=== PATIENT | male | born 1940 | race Caucasian/White ===

== ENCOUNTER 2024-05-18 07:51 | Inpatient (IN) | payer OTHER ==
[~2024-05-18] VITALS: Ht 172.7 cm; Wt 70.7 kg
--- NOTE | 2024-05-18 08:20 | ED.PDOC ---
Musculoskeletal HPI Comments 83Y M presents to ED for chief complaint LLE pain and swelling [id number]. Pt denies trauma, injury, and recent travel. No other symptoms reported. Pt denies alcohol, tobacco, and illicit drug use. Pt states he does not have a medical hx. Chief Complaint: Lower Extremity Time Seen by MD: 08:00 Reviewed Notes: Nurses Notes, Medications, Allergies Allergies: Coded Allergies: No Known Drug Allergy (Verified Allergy, Unknown, 05/18/24) Information Source: Patient Mode of Arrival: Ambulatory Location: Left Extremity Location: Calf Timing: Weeks Severity: Mild Able to Move Extremity: Yes Bear Weight: Fully Pain: Mild Circumstances: Spontaneous Onset of Symptoms: Spontaneous Symptoms: Swelling, Pain DVT Risk Factors: NONE Associated signs and symptoms: Swelling, Other Past Medical History PAST MEDICAL HISTORY: Denies Surgical History: Denies all surgeries Family History Family History: Unknown Social History Smoker: Non-Smoker Alcohol: Denies ETOH Use Drugs: Denies Drug Use Lives In: Home Constitutional: denies: chills, diaphoresis, fatigue, fever, malaise, sweats, weakness, others EENTM: denies: blurred vision, double vision, ear bleeding, ear discharge, ear drainage, ear pain, ear ringing, eye pain, eye redness, hearing loss, mouth pain, mouth swelling, nasal discharge, nose bleeding, nose congestion, nose pain, photophobia, tearing, throat pain, throat swelling, voice changes, others Respiratory: denies: cough, hemoptysis, orthopnea, SOB at rest, shortness of breath, SOB with excertion, stridor, wheezing, others Cardiovascular: denies: chest pain, dizzy spells, diaphoresis, Dyspnea on exertion, edema, irregular heart beat, left arm pain, lightheadedness, palpitations, PND, syncope, others Gastrointestinal: denies: abdomen distended, abdominal pain, blood streaked bowels, constipated, diarrhea, dysphagia, difficulty swallowing, hematemesis, melena, nausea, poor appetite, poor fluid intake, rectal bleeding, rectal pain, vomiting, others Genitourinary: denies: burning, dysuria, flank pain, frequency, hematuria, incontinence, penile discharge, penile sore, pain, testicle pain, testicle swelling, urgency, others Neurological: denies: dizziness, fainting, headache, left sided numbness, left sided weakness, numbness, paresthesia, pre-existing deficit, right sided numbness, right sided weakness, seizure, speech problems, tingling, tremors, weakness, others Musculoskeletal: reports: others (left calf pain and swelling); denies: back pain, gout, joint pain, joint swelling, muscle pain, muscle stiffness, neck pain Integumetry: denies: bruises, change in color, change in hair/nails, dryness, laceration, lesions, lumps, rash, wounds, others Allergic/Immunocompromised: denies: Difficulty Healing, Frequent Infections, Hives, Itching, others Hematologic/Lymphatic: denies: anemia, blood clots, easy bleeding, easy bruising, swollen glands, others Endocrine: denies: excessive hunger, excessive sweating, excessive thirst, excessive urination, flushing, intolerance to cold, intolerance to heat, unexplained weight gain, unexplained weight loss, others Psychiatric: denies: anxiety, bipolar disorder, depression, hopeless, panic disorder, schizophrenia, sleepless, suicidal, others All Other Systems: Reviewed and Negative Physical Exam General Appearance: No Apparent Distress, Normal HEENT: Normal ENT Inspection, Pharynx Normal, TMs Normal Neck: Full Range of Motion, Non-Tender, Normal, Normal Inspection Respiratory: Chest Non-Tender, Lungs Clear, No Accessory Muscle Use, No Respiratory Distress, Normal Breath Sounds Cardiovascular: No Edema, No JVD, No Murmur, No Gallop, Normal Peripheral Pulses, Regular Rate/Rhythm Breast Exam: Deferred Gastrointestinal: No Organomegaly, Non Tender, No Pulsatile Mass, Normal Bowel Sounds, Soft Genitalia: Deferred Pelvic: Deferred Rectal: Deferred Extremities: Calf tenderness (left calf tenderness/swelling, greater girth in c omparison to rt calf, no redness, no bruising), Normal capillary refill, Normal inspection, Normal range of motion, No pedal edema Musculoskeletal : Apperance: Normal Neurologic: Alert, debt counselor II-XII nml as Tested, No Motor Deficits, Normal Affect, Normal Mood, No Sensory Deficits Cerebellar Function: Normal Reflexes: Normal Skin: Dry, Normal Color, Warm Lymphatic: No Adenopathy Was a procedure done? Was a procedure done?: No Differential Diagnosis EXT Differential Diagnosis: Cellulitis, CHF, Deep Vein Thrombosis, Compartment Syndrome, Fracture, Sprain, Dislocation, Laceration, Gout, DJD, Contusion, Strain, Rheumatoid, Arthritis, Bursitis, Other (dvt) X-Ray, Labs, Meds, VS Vital Signs Date Time Temp Pulse Resp B/P (MAP) Pulse Ox O2 Delivery O2 Flow Rate FiO2 05/18/24 12:42 67 19 156/66 (96) 96 05/18/24 09:55 97.8 71 17 160/67 (98) 96 97.8 05/18/24 08:00 98.5 84 16 156/61 (92) 96 Lab Test 05/18/24 11:12 Range/Units White Blood Count 8.8 4.4-10.8 10^3/uL Red Blood Count 5.16 4.5-5.90 10^6/uL Hemoglobin 15.6 13.5-17.5 g/dL Hematocrit 46.4 41.0-53.0 % Mean Corpuscular Volume 89.9 80.0-100.0 fL Mean Corpuscular Hemoglobin 30.3 28.0-32.0 pg Mean Corpuscular Hemoglobin Concent 33.7 32.0-36.0 g/dL Red Cell Distribution Width 14.0 11.8-14.3 % Platelet Count 252 140-450 10^3/uL Mean Platelet Volume 6.5 L 6.9-10.8 fL Neutrophils (%) (Auto) 67.4 37.0-80.0 % Lymphocytes (%) (Auto) 20.2 10.0-50.0 % Monocytes (%) (Auto) 11.4 0.0-12.0 % Eosinophils (%) (Auto) 0.6 0.0-7.0 % Basophils (%) (Auto) 0.4 0.0-2.0 % Neutrophils # (Auto) 5.9 1.6-8.6 10 ^3/uL Lymphocytes # (Auto) 1.8 0.4-5.4 10 ^3/uL Monocytes # (Auto) 1.0 0-1.3 10 ^3/uL Eosinophils # (Auto) 0.1 0-0.8 10 ^3/uL Basophils # (Auto) 0 0-0.2 10 ^3/uL Nucleated Red Blood Cells 0.1 % Sodium Level 139 136-145 mmol/L Potassium Level 4.9 3.5-5.1 mmol/L Chloride Level 105 98-107 mmol/L Carbon Dioxide Level 29 20-31 mmol/L Anion Gap 5 5-15 Blood Urea Nitrogen 11 9-23 mg/dL Creatinine 1.03 0.700-1.30 mg/dL Glomerular Filtration Rate Calc 73 >90 mL/min BUN/Creatinine Ratio 10.7 10.0-20.0 Serum Glucose 114 H 74-106 mg/dL Calcium Level 9.6 8.7-10.4 mg/dL Current Medications Medications (Trade) Dose Ordered Sig/Jenaro Route Start Time Stop Time Status Last Admin Enoxaparin Sodium (Lovenox) 70 mg ONCE ONCE SC 05/18/24 10:45 05/18/24 10:46 DC 05/18/24 10:53 [place] [address] Ph: [phone] DIAGNOSTIC IMAGING Diagnostic Imaging Report : [id number] Signed PATIENT: RAJAT MADDOX JACCT: [id number] UNIT: [id number] : 1940 LOC: ER ROOM / BED: / AGE / SEX: 83 / M ADM STATUS: REG ER SERVICE 1 ORDERING PHYSICIAN: GWENDOLYN OLIVAS MD PROCEDURE(s): LLDVT - LT Lower DVT REASON: dvt ORDER NUMBER(s): [id number], ACCESSION NUMBER(s): [id number] EXAM: US Duplex Left Lower Extremity Veins CLINICAL INDICATION: dvt TECHNIQUE: Real-time duplex ultrasound scan of the left lower extremity veins integrating B-mode two-dimensional vascular structure, Doppler spectral analysis, color flow Doppler imaging and compression. COMPARISON: None FINDINGS: DEEP VEINS: DVT in the left superficial femoral vein, popiteal vein and po sterior tibial vein. SUPERFICIAL VEINS: Unremarkable. No thrombus in the visualized great saphenous vein. SOFT TISSUES: No acute findings. No popliteal cyst. OTHER FINDINGS: . . IMPRESSION: DVT in the left superficial femoral vein, popiteal vein and posterior tibial vein. HS:Y ATED BY: YESENIA MONZON MD DICTATED DATE/TIME: 05/18/24 1029 SIGNED BY: YESENIA MONZON MD SIGNED DATE/TIME: 05/18/24 102 CC: Time of 1ST Reevaluation: 08:30 Reevaluation 1ST: Unchanged Time of 2ND Reevaluation: 10:39 Reevaluation 2ND: Unchanged Patient Education/Counseling: Diagnosis, Treatment, Prognosis, Need For Follow Up Family Education/Counseling: Diagnosis, Treatment, Prognosis, Need For Follow Up, No Family Present Additional Information I reviewed the following notes from patient's past medical encounters: None The following tests were ordered, and results were reviewed by me: Lt lower DVT u/s Additional Information was gathered from interviewing the following independent historians: None I reviewed and agreed with the following test results read by other providers: Lt lower DVT u/s I discussed treatment and results with medical personnel. i spoke to Dr Quijano, [place] [facility], who informs me that pt was seen at the clinic yesterday and had a high DDI and was told to come in for US yesterday. their last BMP was normal, but it was 2 years ago, so i will get another baseline set of labs before starting Lovenox and updat Dr Quijano regarding disposition Dr quijano has been updated and will transfer pt to a [facility] facility for further evaluation and treatment. pt is agreeable Departure 1 Departure Time of Disposition: 10:39 Impression: Primary Impression: DVT (deep venous thrombosis) Qualified Codes: I82.401 - Acute embolism and thrombosis of unspecified deep veins of right lower extremity Disposition: 02 SHORT TERM HOSPITAL Condition: Stable Discharged With: Self, Spouse Critical Care Note Critical Care Time?: No Stability Stability form required: No Heart Score Heart Score: Heart Score Response (Comments) Value History N/A 0 EKG N/A 0 Age N/A 0 Risk Factors N/A 0 Troponin N/A 0 Total 0 I personally scribed for GWENDOLYN OLIVAS MD ([facility]) on 05/18/24 at 08:20. Electronically submitted by Annemarie Devlin (Amind). I personally scribed for GWENDOLYN OLIVAS MD ([place]) on 05/18/24 at 10:33. Electronically submitted by Annemarie Devlin (Amind). GWENDOLYN OLIVAS MD May 18, 2024 08:20
--- NOTE | 2024-05-18 10:31 | DVH ---
EXAM: US Duplex Left Lower Extremity Veins CLINICAL INDICATION: dvt TECHNIQUE: Real-time duplex ultrasound scan of the left lower extremity veins integrating B-mode two -dimensional vascular structure, Doppler spectral analysis, color flow Doppler imaging and compressio n. COMPARISON: None FINDINGS: DEEP VEINS: DVT in the left superficial femoral vein, popiteal vein and posterior tibial vein. SUPERFICIAL VEINS: Unremarkable. No thrombus in the visualized great saphenous vein. SOFT TISSUES: No acute findings. No popliteal cyst. OTHER FINDINGS: . . IMPRESSION: DVT in the left superficial femoral vein, popiteal vein and posterior tibial vein. HS:Y
[2024-05-18] MEDS: ENOXAPARIN SOD 80 MG/0.8ML SYRINGE SC ONE (10:53)
[2024-05-18 11:21] LABS: Basophils # (auto) 0 10 ^3/uL (0-0.2); Basophils % (auto) 0.4 % (0.0-2.0); Eosinophils # (auto) 0.1 10 ^3/uL (0-0.8); Eosinophils % (auto) 0.6 % (0.0-7.0); Hematocrit 46.4 % (41.0-53.0); Hemoglobin 15.6 g/dL (13.5-17.5); Lymphocytes # (auto) 1.8 10 ^3/uL (0.4-5.4); Lymphocytes % (auto) 20.2 % (10.0-50.0); Mean Corpuscular Hemoglobin 30.3 pg (28.0-32.0); Mean Corpuscular Hgb Conc. 33.7 g/dL (32.0-36.0); Mean Corpuscular Volume 89.9 fL (80.0-100.0); Monocytes % (auto) 11.4 % (0.0-12.0); Neutrophils # (auto) 5.9 10 ^3/uL (1.6-8.6); Neutrophils % (auto) 67.4 % (37.0-80.0); Nucleated Red Blood Cells % 0.1 %; Platelet Count (auto) 252 10^3/uL (140-450); Red Blood Cells 5.16 10^6/uL (4.5-5.90); White Blood Cell 8.8 10^3/uL (4.4-10.8)
[2024-05-18 11:53] LABS: Chloride 105 mmol/L (98-107); Potassium 4.9 mmol/L (3.5-5.1); Sodium 139 mmol/L (136-145)
[2024-05-18 11:54] LABS: Anion Gap 5 (5-15); Carbon Dioxide 29 mmol/L (20-31)
[2024-05-18 11:55] LABS: Calcium 9.6 mg/dL (8.7-10.4)
[2024-05-18 11:59] LABS: BUN/Creatinine Ratio 10.7 (10.0-20.0); Blood Urea Nitrogen 11 mg/dL (9-23)
[2024-05-18 12:07] LABS: Glucose 114 mg/dL (74-106)
[2024-05-18 16:55] VITALS: PULSE 64; RESP 16; O2SAT 93
[2024-05-18] MEDS ORDERED: DOCUSATE SOD 100 MG CAP PO PRN (19:15)
[2024-05-18] MEDS ORDERED: ONDANSETRON HCL 4 MG/2 ML VIAL IV PRN (19:15)
[2024-05-18] MEDS ORDERED: ACETAMINOPHEN 325 MG TAB PO PRN (19:15)
[2024-05-18] MEDS ORDERED: HYDROcodone-ACET 5/325MG TAB PO PRN (19:15)
[2024-05-18 19:30] VITALS: PULSE 71; RESP 14; O2SAT 93
[2024-05-18] MEDS: SODIUM CHLORIDE 0.9% 1,000 ML IV SCH (19:41)
--- NOTE | 2024-05-18 19:48 | DVHHP2 ---
History of Present Illness Reason for Visit: DVT in the left superficial femoral vein History of Present Illness The patient is a 83-year-old male who denies past medical history presented to [facility] ED with complaint of left lower extremity pain and swelling for approximately 2 weeks duration. Patient was seen and evaluated in the ED, laboratory data shows WBC 8.8, platelets 252, sodium 139, potassium 4.9, BUN 11, creatinine 1.03, GFR 73, glucose 114. Extremity venous study revealing DVT in the left superficial femoral vein, popliteal vein, and posterior tibial vein. Patient was started on Lovenox 70 mg subQ, please see medication orders section in the computer. On my assessment, patient denied chest pain, no trauma, injury, recent travel, no headache, no dizziness, no diaphoresis, no shortness a breath, no nausea, no vomiting, no fever, no chills. Patient was admitted for further evaluation and medical management. Past Medical History Denies past medical history Past Surgical History Denies all surgeries Family History Reviewed, noncontributory to the management of this case. Past Social History The patient lives at home, denies smoking, alcohol or illicit drugs abuse. Review of Systems Constitutional: Yes: Weakness; No: Fever, Chills, Sweats, Malaise, Other Eyes: No: Pain, Vision change, Conjunctivae inflammation, Eyelid inflammation, Other, Redness ENT: No: Ear pain, Ear discharge, Nose pain, Nose discharge, Nose congestion, Mouth pain, Mouth swelling, Throat pain, Throat swelling, Other Respiratory: No: Cough, Dry, Shortness of breath, SOB with excertion, Wheezing, Hemoptysis, Pleuritic Pain, Sputum, Wheezing, Other Cardiovascular: No: Chest Pain, Palpitations, Orthopnea, Paroxysmal Noc. Dyspnea, Edema, Lt Headedness, Other Gastrointestinal: No: Nausea, Vomiting, Abdominal Pain, Diarrhea, Constipation, Melena, Hematochezia, Other Genitourinary: No Dysuria, No Frequency, No Incontinence, No Hematuria, No Retention, No Other Musculoskeletal: other (left calf pain and swelling); No: neck pain, shoulder pain, arm pain, back pain, hand pain, leg pain, foot pain Skin: No: Rash, Lesions, Jaundice, Bruising, Other Neurological: No: Weakness, Numbness, Incoordination, Change in speech, Confusion, Seizures, Other Allergies: Coded Allergies: No Known Drug Allergy (Verified Allergy, Unknown, 05/18/24) Medications Current Medications Medications Dose Ordered Sig/Jenaro Route Start Time Stop Time Status Last Admin Dose Admin Enoxaparin Sodium 70 mg Q12HR SC 05/18/24 22:00 Sodium Chloride 1,000 ml @ 60 mls/hr [id number] IV 05/18/24 19:15 05/18/24 19:41 60 MLS/HR Acetaminophen/ Hydrocodone Bitart 1 tab Q4HP PRN PO 05/18/24 19:15 Ondansetron HCl 4 mg Q4HP PRN IV 05/18/24 19:15 Docusate Sodium 100 mg BIDPRN PRN PO 05/18/24 19:15 Acetaminophen 650 mg Q6HP PRN PO 05/18/24 19:15 Exam Vital Signs Vital Signs Date Time Temp Pulse Resp B/P (MAP) Pulse Ox O2 Delivery O2 Flow Rate FiO2 05/18/24 19:27 99.6 71 14 140/63 (88) 93 99.6 05/18/24 16:55 Room Air* 0 21 General Appearance: Alert, Oriented X3, Cooperative, No acute distress HEENT: Atraumatic, PERRLA, EOMI, Mucous membr. moist/pink Respiratory: Clear to auscultation, Normal air movement Cardiovascular: Regular rate, Normal S1, Normal S2, No murmurs Abdominal: Normal bowel sounds, Soft, No tenderness, No hepatospenomegaly, No masses Extremities: No clubbing, No cyanosis, No edema, Normal pulses, Other (Left calf swelling/pain) Skin: No rashes, No breakdown, No significant lesion Neuro: Normal speech, Normal tone, Sensation intact, Cranial nerves 3-12 NL, Reflexes 2+, Other (Generalized weakness) Psych/Mental Status: Mental status NL, Mood NL Labs/Xrays Labs Test 05/18/24 11:12 Range/Units White Blood Count 8.8 4.4-10.8 10^3/uL Red Blood Count 5.16 4.5-5.90 10^6/uL Hemoglobin 15.6 13.5-17.5 g/dL Hematocrit 46.4 41.0-53.0 % Mean Corpuscular Volume 89.9 80.0-100.0 fL Mean Corpuscular Hemoglobin 30.3 28.0-32.0 pg Mean Corpuscular Hemoglobin Concent 33.7 32.0-36.0 g/dL Red Cell Distribution Width 14.0 11.8-14.3 % Platelet Count 252 140-450 10^3/uL Mean Platelet Volume 6.5 L 6.9-10.8 fL Neutrophils (%) (Auto) 67.4 37.0-80.0 % Lymphocytes (%) (Auto) 20.2 10.0-50.0 % Monocytes (%) (Auto) 11.4 0.0-12.0 % Eosinophils (%) (Auto) 0.6 0.0-7.0 % Basophils (%) (Auto) 0.4 0.0-2.0 % Neutrophils # (Auto) 5.9 1.6-8.6 10 ^3/uL Lymphocytes # (Auto) 1.8 0.4-5.4 10 ^3/uL Monocytes # (Auto) 1.0 0-1.3 10 ^3/uL Eosinophils # (Auto) 0.1 0-0.8 10 ^3/uL Basophils # (Auto) 0 0-0.2 10 ^3/uL Nucleated Red Blood Cells 0.1 % Sodium Level 139 136-145 mmol/L Potassium Level 4.9 3.5-5.1 mmol/L Chloride Level 105 98-107 mmol/L Carbon Dioxide Level 29 20-31 mmol/L Anion Gap 5 5-15 Blood Urea Nitrogen 11 9-23 mg/dL Creatinine 1.03 0.700-1.30 mg/dL Glomerular Filtration Rate Calc 73 >90 mL/min BUN/Creatinine Ratio 10.7 10.0-20.0 Serum Glucose 114 H 74-106 mg/dL Calcium Level 9.6 8.7-10.4 mg/dL PATIENT: RAJAT MADDOX JACCT: [id number] UNIT: [id number] : 1940 LOC: ER ROOM / BED: / AGE / SEX: 83 / M ADM STATUS: REG ER SERVICE 08 ORDERING PHYSICIAN: GWENDOLYN OLIVAS MD PROCEDURE(s): LLDVT - LT Lower DVT REASON: dvt ORDER NUMBER(s): [id number], ACCESSION NUMBER(s): [id number] EXAM: US Duplex Left Lower Extremity Veins CLINICAL INDICATION: dvt TECHNIQUE: Real-time duplex ultrasound scan of the left lower extremity veins integrating B-mode two-dimensional vascular structure, Doppler spectral analysis, color flow Doppler imaging and compression. COMPARISON: None FINDINGS: DEEP VEINS: DVT in the left superficial femoral vein, popiteal vein and posterior tibial vein. SUPERFICIAL VEINS: Unremarkable. No thrombus in the visualized great saphenous vein. SOFT TISSUES: No acute findings. No popliteal cyst. OTHER FINDINGS: IMPRESSION: DVT in the left superficial femoral vein, popiteal vein and posterior tibial vein. Assessment/Plan Assessment/Plan DVT (deep venous thrombosis) Generalized weakness Acute embolism and thrombosis of unspecified deep veins of left lower extremity Plan 1. Admit to telemetry unit 2. Breathing treatment 3. Pain control management 4. Management of fluids and electrolytes 5. Consultation for hospitalist 6. Diagnostic tests extremity venous study 7. DVT prophylaxis-on Lovenox 8. Repeat labs CBC, CMP in a.m. 9. Continue with current medical management 10. Treatment plan discussed with patient and RN. Patient verbalized understanding. Plan discussed with: Patient, Other (RN) My Orders Orders - ALYSSIA HESTER DNP Procedure Category Date Status Time Enoxaparin Sodium PHA 05/18/24 In Process (Lovenox) 22:00 Allergies DAWIT 05/18/24 In Process 19:06 Code Status CODE 05/18/24 Transmitted 19:06 Sodium Chloride 0.9% PHA 05/18/24 In Process 19:15 Oxygen Per Hour RT 05/18/24 Transmitted 19:06 Hydrocodone-Acet PHA 05/18/24 In Process 5/325mg Tab ([place] 19:15 Ondansetron Hcl PHA 05/18/24 In Process (Zofran) 19:15 Docusate Sodium PHA 05/18/24 In Process Capsule (Colace 19:15 Fall Risk Precautions DAWIT 05/18/[address] 19:06 Complete Blood Count LAB 05/19/24 Verified 04:00 Comprehensive LAB 05/19/24 Verified Metabolic Panel 04:00 Cardiac DIET 05/19/24 Transmitted Diet-2gna,Lofat,Lochol Breakfast Condition: Serious DAWIT 05/18/24 In Process 19:06 Acetaminophen Tablet PHA 05/18/24 In Process (Tylenol Tablet) 19:15 Bedrest With Bathroom DAWIT 05/18/24 In Process Privileg 19:06 Problem List: (1) DVT (deep venous thrombosis) (2) Generalized weakness (3) Acute embolism and thrombosis of unspecified deep veins of left lower extremity Date of Service: May 18, 2024 Billing Provider: ALYSSIA HESTER DNP Common Visit Codes: [id number] INP/OBS CARE (HIGH) ALYSSIA HESTER DNP May 18, 2024 19:48
[2024-05-18] MEDS ORDERED: MORPHINE SULFATE INJ 2 MG/ml SYRG IV PRN (20:00)
[2024-05-18] MEDS ORDERED: NITROGLYCERIN 0.4 MG SL TAB SL PRN (20:00)
[2024-05-18] MEDS: ENOXAPARIN SOD 80 MG/0.8ML SYRINGE SC SCH (22:00)
[2024-05-18 23:27] VITALS: BP 132/68; PULSE 75; RESP 18; TEMP 99; O2SAT 93
[2024-05-18 23:32] VITALS: BP 132/68; PULSE 95; RESP 18; TEMP 99; O2SAT 95
[2024-05-19] VITALS (7 sets, daily range): BP systolic 132–146; BP diastolic 61–90; PULSE 67–77; RESP 16–20; TEMP 98.3–100; O2SAT 93–95
[2024-05-19 07:22] LABS: Basophils # (auto) 0 10 ^3/uL (0-0.2); Basophils % (auto) 0.5 % (0.0-2.0); Eosinophils # (auto) 0 10 ^3/uL (0-0.8); Eosinophils % (auto) 0.5 % (0.0-7.0); Hematocrit 45.1 % (41.0-53.0); Hemoglobin 15.6 g/dL (13.5-17.5); Lymphocytes # (auto) 1.5 10 ^3/uL (0.4-5.4); Lymphocytes % (auto) 16.9 % (10.0-50.0); Mean Corpuscular Hemoglobin 30.7 pg (28.0-32.0); Mean Corpuscular Hgb Conc. 34.6 g/dL (32.0-36.0); Mean Corpuscular Volume 88.8 fL (80.0-100.0); Monocytes # (auto) 1.1 10 ^3/uL (0-1.3); Monocytes % (auto) 12.2 % (0.0-12.0); Neutrophils # (auto) 6.2 10 ^3/uL (1.6-8.6); Neutrophils % (auto) 69.9 % (37.0-80.0); Platelet Count (auto) 268 10^3/uL (140-450); Red Blood Cells 5.07 10^6/uL (4.5-5.90); Red Cell Distribution Width 13.8 % (11.8-14.3); White Blood Cell 8.9 10^3/uL (4.4-10.8)
[2024-05-19 07:26] LABS: Alanine Aminotransferase 11 U/L (7-40); Albumin 3.7 g/dL (3.2-4.8); Alkaline Phosphatase 92 U/L (46-116); Anion Gap 6 (5-15); Aspartate Aminotransferase 18 U/L (13-40); BUN/Creatinine Ratio 13.3 (10.0-20.0); Blood Urea Nitrogen 13 mg/dL (9-23); Calcium 9.4 mg/dL (8.7-10.4); Carbon Dioxide 28 mmol/L (20-31); Chloride 106 mmol/L (98-107); Potassium 4.6 mmol/L (3.5-5.1); Sodium 140 mmol/L (136-145)
[2024-05-19 07:27] LABS: Total Protein 6.2 g/dL (5.7-8.2)
[2024-05-19 07:58] LABS: Bilirubin, Total 1.3 mg/dL (0.2-1.0); Glucose 118 mg/dL (74-106)
--- NOTE | 2024-05-19 15:27 | DVHDSRES ---
Discharge Summary Date of Admission Resident Creating Document: RADHA INGRAM RESIDENT May 18, 2024 at 19:47 Date of Discharge: May 19, 2024 Admitting Diagnosis DVT of the left leg Labs/Diagnostic Data: PATIENT: RAJAT MADDOX JACCT: [id number] UNIT: [id number] : 1940 LOC: ER ROOM / BED: / AGE / SEX: 83 / M ADM STATUS: REG ER SERVICE [id number] ORDERING PHYSICIAN: GWENDOLYN OLIVAS MD PROCEDURE(s): LLDVT - LT Lower DVT REASON: dvt ORDER NUMBER(s): [id number], ACCESSION NUMBER(s): [id number] EXAM: US Duplex Left Lower Extremity Veins CLINICAL INDICATION: dvt TECHNIQUE: Real-time duplex ultrasound scan of the left lower extremity veins integrating B-mode two-dimensional vascular structure, Doppler spectral analysis, color flow Doppler imaging and compression. COMPARISON: None FINDINGS: DEEP VEINS: DVT in the left superficial femoral vein, popiteal vein and posterior tibial vein. SUPERFICIAL VEINS: Unremarkable. No thrombus in the visualized great saphenous vein. SOFT TISSUES: No acute findings. No popliteal cyst. OTHER FINDINGS: . . IMPRESSION: DVT in the left superficial femoral vein, popiteal vein and posterior tibial vein. HS:Y ATED BY: YESENIA KENNEDY MD DICTATED DATE/TIME: 05/18/24 1029 Laboratory Results Test 05/19/24 06:40 White Blood Count 8.9 10^3/uL (4.4-10.8) Red Blood Count 5.07 10^6/uL (4.5-5.90) Hemoglobin 15.6 g/dL (13.5-17.5) Hematocrit 45.1 % (41.0-53.0) Mean Corpuscular Volume 88.8 fL (80.0-100.0) Mean Corpuscular Hemoglobin 30.7 pg (28.0-32.0) Mean Corpuscular Hemoglobin Concent 34.6 g/dL (32.0-36.0) Red Cell Distribution Width 13.8 % (11.8-14.3) Platelet Count 268 10^3/uL (140-450) Mean Platelet Volume 6.9 fL (6.9-10.8) Neutrophils (%) (Auto) 69.9 % (37.0-80.0) Lymphocytes (%) (Auto) 16.9 % (10.0-50.0) Monocytes (%) (Auto) 12.2 % (0.0-12.0) Eosinophils (%) (Auto) 0.5 % (0.0-7.0) Basophils (%) (Auto) 0.5 % (0.0-2.0) Neutrophils # (Auto) 6.2 10 ^3/uL (1.6-8.6) Lymphocytes # (Auto) 1.5 10 ^3/uL (0.4-5.4) Monocytes # (Auto) 1.1 10 ^3/uL (0-1.3) Eosinophils # (Auto) 0 10 ^3/uL (0-0.8) Basophils # (Auto) 0 10 ^3/uL (0-0.2) Nucleated Red Blood Cells 0.0 % Sodium Level 140 mmol/L (136-145) Potassium Level 4.6 mmol/L (3.5-5.1) Chloride Level 106 mmol/L (98-107) Carbon Dioxide Level 28 mmol/L (20-31) Anion Gap 6 (5-15) Blood Urea Nitrogen 13 mg/dL (9-23) Creatinine 0.98 mg/dL (0.700-1.30) Glomerular Filtration Rate Calc 77 mL/min (>90) BUN/Creatinine Ratio 13.3 (10.0-20.0) Serum Glucose 118 mg/dL (74-106) Calcium Level 9.4 mg/dL (8.7-10.4) Total Bilirubin 1.3 mg/dL (0.2-1.0) Aspartate Amino Transferase (AST) 18 U/L (13-40) Alanine Aminotransferase (ALT) 11 U/L (7-40) Alkaline Phosphatase 92 U/L (46-116) Total Protein 6.2 g/dL (5.7-8.2) Albumin 3.7 g/dL (3.2-4.8) Other Laboratory Tests 05/19/24 06:40 Brief Hx & Hospital Course: Hospital course This 83-year-old male without any past medical history presented to the ED with a chief complaint of left lower extremity pain and swelling for approximately 2 weeks duration. He denies trauma, insect bite, resent infections, smoking, sedentary lifestyle, or recent long distance travel. Patient denied any family history of coagulopathy. He also denied headache, dizziness, diaphoresis, shortness a breath, nausea, vomiting, fever, chills. Patient is a elementary vocal music teacher. In the ED, his vitals were temp 98.5,HR:84, RR: 16, BP 156/61. Laboratory data showed WBC 8.8, platelets 252, sodium 139, potassium 4.9, BUN 11, creatinine 1.03, GFR 73, glucose 114. Extremity venous study revealed DVT in the left superficial femoral vein, popliteal vein, and posterior tibial vein. Patient was started on Lovenox 70 mg subQ q12hr. During my assessment with the attending, patient does not seem to have any respiratory symptoms. He is clinically stable. therefore will discharge him home on Eliquis. Patient educated on the side effects of blood thinners. He should watch out for melena stool, increased bleeding and to report to the hospital in case of any trauma. Examination General Appearance: Alert, Oriented X3, Cooperative, No acute distress HEENT: Atraumatic, PERRLA, EOMI, Mucous membrane moist/pink Respiratory: Clear to auscultation, Normal air movement Cardiovascular: Regular rate, Normal S1, Normal S2, No murmurs, no chest wall tenderness Abdominal: NO distention, no tenderness, bowel sounds present, no scars noted Extremities: No clubbing, No cyanosis, No edema, Normal pulses, No tenderness/swelling Left Lower extremity: 12inches Right lower extremity: 11 inches Skin: No rashes, No breakdown, No significant lesion Neuro: Normal gait, Normal speech, Strength at 5/5 X4 ext, Normal tone, Sensation intact, Cranial nerves 3-12 NL, Reflexes 2+ Psych/Mental Status: Mental status NL, Mood NL Diagnoses DVT of the left lower extremity Generalized weakness Hyperglycemia Discharge plan Eliquis 10 mg bid for 7 days Eliquis 5 mg b.i.d. for 3 months Continue daily vitamins as usual Follow up at the discharge clinic in a 7 days Patient advised to monitor his breathing. Should he notice any changes in his respiratory he is advised to come to the ED as soon as possible. Patient advised that because he will be on blood thinners, he should report to hospital if he receives any trauma to his head Case and plan discussed with Dr. Kilpatrick Condition at Discharge: Good Final Diagnosis/Problems List Acute DVT in the left femoral vein, popiteal vein and posterior tibial vein Generalized weakness Hyperglycemia Discharge Disposition: Home Discharge Instruct/Medications Diet: Regular Activity: No Restrictions, As Tolerated Follow Up/Referral: 7 dayss Medications: Therapeutic levonox Home with eliquis 10 mg daily for 7 days and 5mg bid for 3 months Discharge Statement: "Patient was advised to return to the ER or call 911 if any headaches, dizziness, shortness of breath, chest pain, abdominal pain, bleeding, fevers, or worsening of medical condition. Patient was counseled about treatment plan, medications, possible side effects, patientverbalized understanding. All questions were answered to the best of my ability. This discharge took greater then 30 minutes in planning, reviewing documentation, counseling the patient, and discussing with other team members." ASSESSMENT ASSESSMENT Assessment Acute DVT in the left femoral vein, popiteal vein and posterior tibial vein Generalized weakness RADHA INGRAM RESIDENT May 19, 2024 15:27
[2024-05-19] MEDS ORDERED: APIX5TAB PO (18:07)
[2024-05-19] MEDS ORDERED: DOCU1CAP46 PO (18:07)
[2024-05-19] MEDS ORDERED: ACET650S12 RE (18:07)
== END 2024-05-19 17:05 | disposition home or self-care (01) | DRG 301 ==
LOC: ER 07:51 → TELE 19:47 → TELE-EAST 23:26
PROVIDERS: ADMIT Nurse Practitioner Family; ATTEND Nurse Practitioner Family
DX: I82.412 Acute embolism and thrombosis of left femoral vein (principal); I82.432 Acute embolism and thrombosis of left popliteal vein; I82.442 Acute embolism and thrombosis of left tibial vein; R73.9 Hyperglycemia, unspecified; Z79.899 Other long term (current) drug therapy
CPT/HCPCS: 36415; 80048; 80053; 85025; 93971; 96360; 96372; 99291; G0378